=== PATIENT | female | born 1975 | race Hispanic/Latino ===

== ENCOUNTER 2024-06-15 06:48 | Day surgery (SDC) | payer BC ==
[2024-06-09 15:28] VITALS: BMI 28.7
[2024-06-15] MEDS ORDERED: Bupivacaine/Epinephrine 0.25% 30 ML VIAL ONE (07:57)
[2024-06-15] MEDS ORDERED: CEFAZOLIN 2 GM VIAL ONE (08:25)
[2024-06-15] MEDS ORDERED: PROPOFOL 20 ML ONE (08:37)
[2024-06-15] MEDS ORDERED: fentaNYL 50 mcg/mL 1 mL Vial ONE (08:37)
[2024-06-15] MEDS ORDERED: Rocuronium Bromide 10 MG/ML (10ML VIAL) ONE (08:38)
[2024-06-15] MEDS ORDERED: Lidocaine 1% PF 5 ML VIAL ONE (08:38)
[2024-06-15] MEDS ORDERED: Dexamethasone 4 mg/ml Vial ONE (09:25)
[2024-06-15] MEDS ORDERED: Ondansetron PF 4 MG/2 ML Vial ONE (09:25)
[2024-06-15] MEDS ORDERED: SUGAMMADEX SODIUM 200 MG/2 ML VIAL ONE (09:31)
[2024-06-15] MEDS ORDERED: HYDROcodone/Acetaminophen 5/325 mg Tablet ONE (10:30)
== END 2024-06-15 11:20 | disposition home or self-care (01) ==
LOC: CSHSDC 06:48
PROVIDERS: ATTEND Surgery
PROC: 0JB70ZZ Excision of Back Subcutaneous Tissue and Fascia, Open Approach (ICD-10-PCS; principal; 2024-06-15)
DX: D17.1 Benign lipomatous neoplasm of skin and subcutaneous tissue of trunk (principal); H91.93 Unspecified hearing loss, bilateral; E03.9 Hypothyroidism, unspecified; E66.9 Obesity, unspecified; Z68.31 Body mass index [BMI] 31.0-31.9, adult; Z98.890 Other specified postprocedural states; Z79.890 Hormone replacement therapy; Z79.899 Other long term (current) drug therapy
CPT/HCPCS: 88304; A6258; J1100; J2405; J2704; J3010